=== PATIENT | female | born 1990 | race African-American/Black ===

== ENCOUNTER 2020-07-13 10:32 | Emergency (ER) | payer MEDICAID ==
[~2020-07-13] VITALS: Ht 154.9 cm; Wt 95.3 kg
--- NOTE | 2020-07-13 10:56 | NUR ---
PT AMBULATORY TO ROOM, CHANGED INTO GOWN. MONITORS IN PLACE. CALL LIGHT WITHIN REACH. FAMILY AT BS
[2020-07-13] MEDS ORDERED: ONDANSETRON 2MG/ML, 2ML ONE (11:25)
[2020-07-13] MEDS ORDERED: MAALOX/HYOSCYAMINE/LIDOCAINE 45 ML BTL ONE (11:26)
[2020-07-13] MEDS ORDERED: MORPHINE SULFATE 4 MG/ML, 1ML ONE (11:26)
[2020-07-13] MEDS ORDERED: ONDANSETRON 2MG/ML, 2ML IVPush ONE (11:30)
[2020-07-13] MEDS ORDERED: MORPHINE SULFATE 4 MG/ML, 1ML IVPush PRN (11:30)
[2020-07-13] MEDS ORDERED: SODIUM CHLORIDE FLUSH 10ML SYR IVF ONE (11:30)
[2020-07-13] MEDS ORDERED: MAALOX/HYOSCYAMINE/LIDOCAINE 45 ML BTL PO ONE (11:30)
[2020-07-13 11:48] LABS: MICROSCOPIC NOT IND
[2020-07-13 12:40] LABS: MEAN CORPUSCULAR HGB CONC 33.8 g/dL (32.4-35.8); MEAN PLATELET VOLUME 8.9 fL (7.4-10.4); PLATELET COUNT 250 x10^3/uL (130-400); RED BLOOD COUNT 3.97 x10^6/uL (3.82-5.3); RED CELL DISTRIBUTION WIDTH 12.5 % (9.6-15.2)
[2020-07-13 12:49] LABS: ALANINE AMINOTRANSFERASE 51 U/L (12-78); ALBUMIN 3.7 g/dL (3.4-5.0); ANION GAP 6 mmol/L (5-15); CHLORIDE 110 mmol/L (98-107); CREATININE 0.94 mg/dL (0.55-1.02)
[2020-07-13 12:53] LABS: ALKALINE PHOSPHATASE 81 U/L (45-117); BILIRUBIN,TOTAL 0.4 mg/dL (0.2-1.0); TOTAL PROTEIN 7.5 g/dL (6.4-8.2)
[2020-07-13 13:04] LABS: MD YES
[2020-07-13 13:06] LABS: <PLATELET ESTIMATE> ADEQUATE; <PLT MORPHOLOGY> NORMAL PLT MORPH; <RBC MORPHOLOGY> NORMAL; BAND#(MANUAL) 0.05 x10^3/uL; BANDS%(MANUAL) 1 % (0-7); BASOS#(MANUAL) 0.05 x10^3/uL (0-0.1); BASOS% (MANUAL) 1 % (0-1); LYMPH#(MANUAL) 2.49 x10^3/uL (1-3.4); LYMPHS% (MANUAL) 53 % (22-44); MONOS#(MANUAL) 0.14 x10^3/uL (0.3-2.7); MONOS% (MANUAL) 3 % (2-9); REACTIVE LYMPHS # (MANUAL) 0.09 x10^3/uL (0-0); REACTIVE LYMPHS % (MANUAL) 2 % (0-0); SEG#(MANUAL) 1.88 x10^3/uL (1.8-6.8); SEGS% (MANUAL) 40 % (42-75)
[2020-07-13 13:23] VITALS: BP 130/72
== END 2020-07-13 13:32 | disposition home or self-care (01) ==
LOC: ED 13:15
DX: R10.11 Right upper quadrant pain (principal); R10.13 Epigastric pain; R11.2 Nausea with vomiting, unspecified; R00.1 Bradycardia, unspecified
CPT/HCPCS: 36415; 76700; 80053; 81003; 83690; 84703; 85025; 93005; 96374; 96375; 99285; J2270; J2405

== ENCOUNTER 2020-10-03 01:25 | Emergency (ER) | payer MEDICAID ==
[~2020-10-03] VITALS: Ht 162.6 cm; Wt 91.7 kg
[2020-10-03 01:30] VITALS: BP 120/67
[2020-10-03] MEDS ORDERED: METHOCARBAMOL 750 MG TABLET PO ONE (02:00)
[2020-10-03] MEDS ORDERED: IBUPROFEN 800 MG TABLET PO ONE (02:00)
[2020-10-03] MEDS ORDERED: IBUPROFEN 600 MG TABLET ONE (02:06)
[2020-10-03] MEDS ORDERED: METHOCARBAMOL 750 MG TABLET ONE (02:06)
[2020-10-03] MEDS ORDERED: IBUPROFEN 800 MG TABLET ONE (02:22)
== END 2020-10-03 03:12 | disposition home or self-care (01) ==
LOC: ED 01:55
DX: S39.012A Strain of muscle, fascia and tendon of lower back, initial encounter (principal); J45.909 Unspecified asthma, uncomplicated; F17.200 Nicotine dependence, unspecified, uncomplicated; V18.0XXA Pedal cycle driver injured in noncollision transport accident in nontraffic accident, initial encounter; Y93.89 Activity, other specified; Y92.410 Unspecified street and highway as the place of occurrence of the external cause; Y99.8 Other external cause status
CPT/HCPCS: 72110; 99283